=== PATIENT | male | born 1995 | race Caucasian/White ===

== ENCOUNTER 2016-05-25 08:01 | Emergency (ER) | payer OTHER ==
--- NOTE | 2016-05-25 08:51 | ED NURSING NOTES ---
Clinical Report - Nurses [facility] [address] [place] [address] 05/25/2016 8:03 Patient: DALILA PATEL TRIAGE Triage time 08:26. Acuity: LEVEL 3. Chief Complaint: PAIN TO RIGHT EYE. DISCOMFORT and BURNING TO RIGHT EYE. 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 Alert. VISUAL ACUITY: Visual acuity performed: left eye 20/40; both eyes 20/40 (Pt unable to open right eye for acuity test). --08:29 Christy Mccann R.N. 08:26 05/25/16. Pain level now: 6/10. --08:29 Christy Mccann R.N. VISUAL ACUITY: Visual acuity performed: right eye 20/40 (after 2 drops of Alcaine into right eye). --08:34 Christy Mccann R.N. 08:35 05/25/16. BP: 118/54. HR: 71. RR: 18. O2 saturation: 100%. Temp: 98.1 F. --08:37 Christy Mccann R.N. Weight: 117.9 kg stated. Height/Length: 71 inches Per Patient. BMI: 36.3. --08:28 Christy Mccann R.N. Medications None. --08:27 Christy Mccann R.N. Allergies No Known Drug Allergy. --08:27 Christy Mccann R.N. History Arrived by private vehicle. Historian: patient. Accompanied by friend. This started today. Onset. (at 0730). PAST MEDICAL HX: The patient does not wear contact lenses. Immunizations: up-to-date. SOCIAL HX: Never smoker. No alcohol use or drug use. NUTRITIONAL RISK ASSESSMENT: The nutritional risk assessment revealed no deficiencies. FUNCTIONAL ASSESSMENT: Functional assessment: no impairments noted. LEARNING NEEDS ASSESSMENT: The learning needs assessment revealed no barriers. --08:29 Christy Mccann R.N. Interventions ID band on patient. To room. --08:29 Christy Mccann R.N. NURSING PROGRESS NOTES 08:38 05/25/2016 Alcaine (Proparacaine HCl) Eye Drops 2 drop given. Given in the right eye. Confirmed 5 rights. --08:38 Christy Mccann R.N. DISPOSITION / DISCHARGE Departure time: 0854. Condition at departure: improved. ( vitals deferred). No learning barriers present. Discharge instructions provided and reviewed with the patient. Reviewed medication(s) information. Prescription(s) given to the patient. Reviewed referral to family practice for followup. Verbalized understanding. Written instructions provided. ( Pt did not want to wear patch, so was handed to him to wear when he gets home.). The patient was discharged home. He left the Emergency Department ambulatory and via private vehicle. Medication Administration Professional driving. --12:52 Christy Mccann R.N. Locked/Released at 05/25/2016 12:52 by Christy Mccann R.N.
--- NOTE | 2016-05-25 08:51 | ED NURSING NOTES ---
Clinical Report - Nurses [facility] [address] [place] [address] 05/25/2016 8:03 Patient: DALILA PATEL TRIAGE Triage time 08:26. Acuity: LEVEL 3. Chief Complaint: PAIN TO RIGHT EYE. DISCOMFORT and BURNING TO RIGHT EYE. 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 Alert. VISUAL ACUITY: Visual acuity performed: left eye 20/40; both eyes 20/40 (Pt unable to open right eye for acuity test). --08:29 Christy Mccann R.N. 08:26 05/25/16. Pain level now: 6/10. --08:29 Christy Mccann R.N. VISUAL ACUITY: Visual acuity performed: right eye 20/40 (after 2 drops of Alcaine into right eye). --08:34 hCristy Mccann R.N. 08:35 05/25/16. BP: 118/54. HR: 71. RR: 18. O2 saturation: 100%. Temp: 98.1 F. --08:37 Christy Mccann R.N. Weight: 117.9 kg stated. Height/Length: 71 inches Per Patient. BMI: 36.3. --08:28 Christy Mccann R.N. Medications None. --08:27 Christy Mccann R.N. Allergies No Known Drug Allergy. --08:27 Christy Mccann R.N. History Arrived by private vehicle. Historian: patient. Accompanied by friend. This started today. Onset. (at 0730). PAST MEDICAL HX: The patient does not wear contact lenses. Immunizations: up-to-date. SOCIAL HX: Never smoker. No alcohol use or drug use. NUTRITIONAL RISK ASSESSMENT: The nutritional risk assessment revealed no deficiencies. FUNCTIONAL ASSESSMENT: Functional assessment: no impairments noted. LEARNING NEEDS ASSESSMENT: The learning needs assessment revealed no barriers. --08:29 Christy Mccann R.N. Interventions ID band on patient. To room. --08:29 Christy Mccann R.N. NURSING PROGRESS NOTES 08:38 05/25/2016 Alcaine (Proparacaine HCl) Eye Drops 2 drop given. Given in the right eye. Confirmed 5 rights. --08:38 Christy Mccann R.N. DISPOSITION / DISCHARGE Departure time: 0854. Condition at departure: improved. ( vitals deferred). No learning barriers present. Discharge instructions provided and reviewed with the patient. Reviewed medication(s) information. Prescription(s) given to the patient. Reviewed referral to family practice for followup. Verbalized understanding. Written instructions provided. ( Pt did not want to wear patch, so was handed to him to wear when he gets home.). The patient was discharged home. He left the Emergency Department ambulatory and via private vehicle. Director Of Elementary Education driving. --12:52 Christy Mccann R.N. Locked/Released at 05/25/2016 12:52 by Christy Mccann R.N.
--- NOTE | 2016-05-25 08:51 | ED ORDER SUMMARY ---
..... Patient: DALILA PATEL OrderSheet [facility] VisitID: [id number] [address] [place] [address] 21y, M Registration Date/Time: 05/25/2016 ORDER SHEET Weight: 117.9 kg (stated) Allergies: No Known Drug Allergy GENERAL ORDERS: MEDICATION ORDERS: Alcaine Eye Drops (Solution 0.5 %) 2 drops (right eye) (08:38 05/25/2016 LSullivan R.N. verbal order read back to Cristobal SAGASTUME) (8:38 LSullivan R.N.) IV FLUIDS: ORDER SHEET NOTES: [Electronically signed by Christy Mccann R.N. (12:52 05/25/2016)] [Electronically signed by Bam Batista MD (23:29 05/27/2016)] [Electronically locked/signed by Christy Mccann R.N. (12:52 05/25/2016)]
--- NOTE | 2016-05-25 08:51 | ED CLINICAL REPORT ---
Clinical Report - Physicians/Mid Levels [facility] [address] [place] [address] 05/25/2016 8:03 Patient: DALILA PATEL Time Seen: 08:29 May 25 2016. Arrived- By private vehicle. Historian- patient. CPT: ER phys charges level 3 (#317483). HISTORY OF PRESENT ILLNESS Chief Complaint: EYE FOREIGN BODY. This started today, involves the right eye, is characterized as moderate in severity and is still present. This occurred at work. 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 Eye pain, discomfort, redness and irritation. No loss of vision. REVIEW OF SYSTEMS No fever, sore throat or cough. All systems otherwise negative, except as recorded above. PAST HISTORY See nurses notes. No history of prior eye injury. He does not wear contact lenses. Tetanus immunization status is up-to-date. Medications: None. Allergies: No Known Drug Allergy. SOCIAL HISTORY Never smoker. No alcohol use or drug use. ADDITIONAL NOTES The nursing notes have been reviewed. PHYSICAL EXAM Vital Signs: 05/25/2016 08:35 BP: 118/54. HR: 71. RR: 18. O2 saturation: 100%. Temp: 98.1 F. Appearance: Alert. HEENT: Ears normal. Head appears normal to external inspection. Rt Eye: Single small corneal abrasion located superiorly. Single small area of fluorescein dye uptake on the cornea superiorly. Eyes: Visual acuity noted. Right eyelid everted for examination. Right cornea examined with fluorescein stain. Eyelids appear normal to inspection. Conjunctivae and sclerae appear normal to inspection. Pupils equal, round and reactive to light. Accommodation normal. EOMs intact. Periorbital areas appear normal to inspection. Right eye examined with slit lamp. Anterior chambers clear. Anterior chambers of normal depth. Lt Eye: Left eye exam normal. Neck: Neck supple. Respiratory: No respiratory distress. Skin: No rash. Neuro: Oriented X 3. PROGRESS AND PROCEDURES Patient/family counseled. Disposition: Discharged. Condition: stable. CLINICAL IMPRESSION Small corneal abrasion to the right eye. No foreign body. INSTRUCTIONS Wear eye patch (as needed.). Do not work today, for one day. Prescription Medications: Sulamyd ophthalmic solution 10% : Instill 2 drops into affected eye every 2 hours while awake for 1 week. Dispense fifteen (15) mL. No refills. Substitution is permissible. Hydrocodone/APAP 5mg/325mg: take 1 to 2 orally every 6 hours as needed for pain. Dispense fifteen (15). No refills. Follow-up: Follow up with your doctor in two days if not better. Understanding of the discharge instructions verbalized by patient. (Electronically signed by Bam Batista MD 05/27/2016 23:29)
--- NOTE | 2016-05-25 08:51 | ED ORDER SUMMARY ---
..... Patient: DALILA PATEL OrderSheet [facility] VisitID: [id number] [address] [place] [address] 21y, M Registration Date/Time: 05/25/2016 ORDER SHEET Weight: 117.9 kg (stated) Allergies: No Known Drug Allergy GENERAL ORDERS: MEDICATION ORDERS: Alcaine Eye Drops (Solution 0.5 %) 2 drops (right eye) (08:38 05/25/2016 LSullivan R.N. verbal order read back to Cristobal SAGASTUME) (8:38 LSullivan R.N.) IV FLUIDS: ORDER SHEET NOTES: [Electronically signed by Christy Mccann R.N. (12:52 05/25/2016)] [Electronically signed by Bam Batista MD (23:29 05/27/2016)] [Electronically locked/signed by Christy Mccann R.N. (12:52 05/25/2016)]
--- NOTE | 2016-05-25 08:51 | ED CLINICAL REPORT ---
Clinical Report - Physicians/Mid Levels [facility] [address] [place] [address] 05/25/2016 8:03 Patient: DALILA PATEL Time Seen: 08:29 May 25 2016. Arrived- By private vehicle. Historian- patient. CPT: ER phys charges level 3 (#[id number]). HISTORY OF PRESENT ILLNESS Chief Complaint: EYE FOREIGN BODY. This started today, involves the right eye, is characterized as moderate in severity and is still present. This occurred at work. 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 Eye pain, discomfort, redness and irritation. No loss of vision. REVIEW OF SYSTEMS No fever, sore throat or cough. All systems otherwise negative, except as recorded above. PAST HISTORY See nurses notes. No history of prior eye injury. He does not wear contact lenses. Tetanus immunization status is up-to-date. Medications: None. Allergies: No Known Drug Allergy. SOCIAL HISTORY Never smoker. No alcohol use or drug use. ADDITIONAL NOTES The nursing notes have been reviewed. PHYSICAL EXAM Vital Signs: 05/25/2016 08:35 BP: 118/54. HR: 71. RR: 18. O2 saturation: 100%. Temp: 98.1 F. Appearance: Alert. HEENT: Ears normal. Head appears normal to external inspection. Rt Eye: Single small corneal abrasion located superiorly. Single small area of fluorescein dye uptake on the cornea superiorly. Eyes: Visual acuity noted. Right eyelid everted for examination. Right cornea examined with fluorescein stain. Eyelids appear normal to inspection. Conjunctivae and sclerae appear normal to inspection. Pupils equal, round and reactive to light. Accommodation normal. EOMs intact. Periorbital areas appear normal to inspection. Right eye examined with slit lamp. Anterior chambers clear. Anterior chambers of normal depth. Lt Eye: Left eye exam normal. Neck: Neck supple. Respiratory: No respiratory distress. Skin: No rash. Neuro: Oriented X 3. PROGRESS AND PROCEDURES Patient/family counseled. Disposition: Discharged. Condition: stable. CLINICAL IMPRESSION Small corneal abrasion to the right eye. No foreign body. INSTRUCTIONS Wear eye patch (as needed.). Do not work today, for one day. Prescription Medications: Sulamyd ophthalmic solution 10% : Instill 2 drops into affected eye every 2 hours while awake for 1 week. Dispense fifteen (15) mL. No refills. Substitution is permissible. Hydrocodone/APAP 5mg/325mg: take 1 to 2 orally every 6 hours as needed for pain. Dispense fifteen (15). No refills. Follow-up: Follow up with your doctor in two days if not better. Understanding of the discharge instructions verbalized by patient. (Electronically signed by Bam Batista MD 05/27/2016 23:29)
--- NOTE | 2016-05-27 23:29 | ED MAR SUMMARY ---
..... Medication Administration Record [facility] [address] [place] [address] Patient: DALILA PATEL Visit ID: [id number] 21y, M Weight: 117.9 kg Height/Length: 71 in BMI: 36.3 ALLERGIES: No Known Drug Allergy Given 08:38 05/25/2016 Christy Mccann, RNbaNNba Medication Administered: ALCAINE [EYE DROPS] (PROPARACAINE HCL), Dose: 2 drop Eye Drops. Medication Ordered: Alcaine Eye Drops (Solution 0.5 %) 2 drops (right eye).
--- NOTE | 2016-05-27 23:29 | ED MAR SUMMARY ---
..... Medication Administration Record [facility] [address] [place] [address] Patient: DALILA PATEL Visit ID: [id number] 21y, M Weight: 117.9 kg Height/Length: 71 in BMI: 36.3 ALLERGIES: No Known Drug Allergy Given 08:38 05/25/2016 Christy Mccann, RNbaNNba Medication Administered: ALCAINE [EYE DROPS] (PROPARACAINE HCL), Dose: 2 drop Eye Drops. Medication Ordered: Alcaine Eye Drops (Solution 0.5 %) 2 drops (right eye).
--- NOTE | 2016-05-27 23:29 | ED MED RECONCILIATION SUMMARY ---
Patient: DALILA PATEL Medication Reconciliation Report [facility] VisitID: [id number] [address] [place] [address] 21y, M Registration Date/Time: 05/25/2016 Weight: 117.9 kg Height/Length: 71 in. BMI: 36.3 ALLERGIES: No Known Drug Allergy The patient's Home Medications are listed below: NONE. The source(s) of the original Home Medication information: Not obtained. The following Medications were given to the patient in the Emergency Department: Alcaine [Eye Drops] Eye Drops 2 drop, administered: 05/25/2016 8:38:00 AM The following Medications were prescribed to the patient: Sulamyd ophthalmic solution 10% : Instill 2 drops into affected eye every 2 hours while awake for 1 week. Dispense fifteen (15) mL. No refills. Substitution is permissible. -- Bam Batista MD Hydrocodone/APAP 5mg/325mg: take 1 to 2 orally every 6 hours as needed for pain. Dispense fifteen (15). No refills. -- Bam Batista MD
--- NOTE | 2016-05-27 23:29 | ED MED RECONCILIATION SUMMARY ---
Patient: DALILA PATEL Medication Reconciliation Report [facility] VisitID: [id number] [address] [place] [address] 21y, M Registration Date/Time: 05/25/2016 Weight: 117.9 kg Height/Length: 71 in. BMI: 36.3 ALLERGIES: No Known Drug Allergy The patient's Home Medications are listed below: NONE. The source(s) of the original Home Medication information: Not obtained. The following Medications were given to the patient in the Emergency Department: Alcaine [Eye Drops] Eye Drops 2 drop, administered: 05/25/2016 8:38:00 AM The following Medications were prescribed to the patient: Sulamyd ophthalmic solution 10% : Instill 2 drops into affected eye every 2 hours while awake for 1 week. Dispense fifteen (15) mL. No refills. Substitution is permissible. -- Bam Batista MD Hydrocodone/APAP 5mg/325mg: take 1 to 2 orally every 6 hours as needed for pain. Dispense fifteen (15). No refills. -- Bam Batista MD
--- NOTE | 2016-05-27 23:29 | ED DISCHARGE INSTRUCTIONS ---
Patient: DALILA PATEL General Instructions [facility] VisitID: [id number] [address] [place] [address] 21y, M Registration Date/Time: 05/25/2016 Small corneal abrasion to the right eye. No foreign body. INSTRUCTIONS Wear eye patch (as needed.). Do not work today, for one day. Prescription Medications: Sulamyd ophthalmic solution 10% : Instill 2 drops into affected eye every 2 hours while awake for 1 week. Dispense fifteen (15) mL. No refills. Substitution is permissible. Hydrocodone/APAP 5mg/325mg: take 1 to 2 orally every 6 hours as needed for pain. Dispense fifteen (15). No refills. Follow-up: Follow up with your doctor in two days if not better. Understanding of the discharge instructions verbalized by patient. ADDITIONAL INFORMATION Corneal Abrasion The cornea is the clear part in the front of the eye. This sensitive area is very painful when injured. There may be tearing and your vision may be blurry until healing occurs. You may be sensitive to light. This part of the body heals quickly. You can expect the pain to go away within 24-48 hours. If the abrasion is large or deep, your doctor may apply an eye patch, although this is not always done. An antibiotic ointment or eye drops may also be used to prevent infection. Numbing drops may be used to relieve the pain temporarily so that your eyes can be examined. However, these drops cannot be prescribed for home use because that would slow down the healing process. Also, if you cant feel your eye, there is a chance of accidentally injuring your eye further without knowing it. Home Care: A cold pack (ice in a plastic bag, wrapped in a towel) may be applied over the eye (or eyepatch) for 20 minutes at a time, to reduce pain. You may use acetaminophen (Tylenol) or ibuprofen (Motrin, Advil) to control pain, unless another pain medicine was prescribed. [NOTE: If you have chronic liver or kidney disease or ever had a stomach ulcer or GI bleeding, talk with your doctor before using these medicines.] Rest your eyes and do not read until symptoms are gone. If you use contact lenses, do not wear them until all symptoms are gone. If your vision is affected by the corneal abrasion or if an eyepatch was applied, DO NOT DRIVE a motor vehicle or operate machinery until all symptoms are gone. Otherwise, you would have trouble judging distances with only one eye. If your eyes are sensitive to light, try wearing sunglasses, or stay indoors, until symptoms go away. Follow Up as advised by our staff. Serious abrasions may be referred to an air quality instrument specialist (veterinary x ray operator). If no patch was used but the pain continues for more than 48 hours, you should have another exam. Return to this facility or contact the referral doctor to arrange this. If your eye was patched and if you were asked to remove the patch yourself, see your doctor or return to this facility if your pain is still present after the patch is removed. If you were given a return appointment for patch removal and re-exam, do not miss this. It could be harmful if the patch remains in place longer than advised. Get Prompt Medical Attention if any of the following occur: Increasing eye pain or pain that does not improve after 24 hours Discharge from the eye Increasing redness of the eye or swelling of the eyelids Your vision gets worse Eye Patch An eye patch is used when there has been an injury to the eye. It provides protection from further injury and also keeps the eyelid closed which promotes healing after a corneal injury. There are different types of patches. One type is stiff and held on with an elastic band. The other kind is made of gauze and is taped in place. Home Care: If you are having pain, you may place an ice pack directly over the eye patch. If you were told to remove the patch to put medicine in your eye, before you reapply the patch be sure your eyelid is closed. Do not patch your eye in the openposition. Otherwise, the patch will press against and injure the exposed cornea (clear, front part of the eye). If you were given a return appointment for patch removal and re-exam, do not miss it. An eye patch should not be left in place for more than 48 hours, unless advised to do so by your doctor. DO NOT DRIVE a motor vehicle or operate machinery with the patch in place since you will have difficulty in judging distances with only one eye. You have been given the following additional information: Corneal Abrasion Eye Patch Do not work today, for one day. (Electronically signed by Bam Batista MD 05/27/2016 23:29)
== END 2016-05-25 08:54 | disposition home or self-care (01) ==
LOC: ED SRH 08:01
DX: S05.01XA Injury of conjunctiva and corneal abrasion without foreign body, right eye, initial encounter (principal); X58.XXXA Exposure to other specified factors, initial encounter; Y93.9 Activity, unspecified; Y92.9 Unspecified place or not applicable; Y99.9 Unspecified external cause status